=== PATIENT | female | born 1970 | race Caucasian/White ===

== ENCOUNTER → 2020-03-13 | Outpatient (CLI) | payer OTHER ==
--- NOTE | 2020-03-13 11:56 | 2DMMODE ---
[facility] [place] [address] 2 D/M-MODE ECHOCARDIOGRAM Name: TONY ESTEVEZ Room #: REG QUIANA Amaral#: [id number] Admission: 03/13/20 Attend Phys: Travis Guerra MD Discharge: Date of : 72 Report #: [id number] THIS REPORT FOR: cc: Travis Guerra MD, Kent K. MD Park, Jin S. MD ~ APPROVED REPORT Study performed: 03/13/2020 11:10:59 EXAM: Comprehensive 2D, Doppler, and color-flow Echocardiogram Patient Location: Out-Patient Status: routine BSA: 1.61 HR: 103 bpm BP: 114/70 mmHg Rhythm: NSR/TACHY Other Information Study Quality: Adequate/thin body habitus Indications Scleroderma. 2D Dimensions RVDd: 30.86 mm IVSd: 8.04 (7-11mm) LVOT Diam: 19.58 (18-24mm) LVDd: 44.10 mm PWd: 8.14 (7-11mm) LVDs: 23.76 (25-40mm) Aortic Root: 31.30 mm Volumes Left Atrial Volume (Systole) Single Plane 4CH: 19.38 mL Single Plane 2CH: 33.51 mL Aortic Valve AoV Peak Jenaro.: 1.72 m/s AO Peak Gr.: 11.77 mmHg LVOT Max P.46 mmHg LVOT Max V: 1.37 m/s MAYA Vmax: 2.40 cm2 [facility] [address] [place] [address] 2 D/M-MODE ECHOCARDIOGRAM Name: TONY ESTEVEZ Room #: REG [facility]#: [id number] Admission: 03/13/20 Attend Phys: Travis Guerra MD Discharge: Date of : 72 Report #: [id number] Mitral Valve E/A Ratio: 1.1 MV Decel. Time: 116.45 ms MV E Max Jenaro.: 0.95 m/s MV A Jenaro.: 0.87 m/s MV PHT: 33.77 ms IVRT: 57.67 ms Pulmonary Valve PV Peak Jenaro.: 1.04 m/s PV Peak Gr.: 4.35 mmHg Pulmonary Vein P Vein S: 0.91 m/s P Vein D: 0.69 m/s P Vein S/D Ratio: 1.32 Tricuspid Valve TR Peak Jenaro.: 1.84 m/s RAP Estimate: 5.00 mmHg TR Peak Gr.: 13.48 mmHg PA Pressure: 18.00 mmHg Left Ventricle The left ventricle is normal size. There is normal LV segmental wall motion. There is normal left ventricular wall thickness. Left ventricular systolic function is normal. LVEF is 65%. The left ventricular diastolic function is normal. Right Ventricle The right ventricle is normal size. The right ventricular systolic function is normal. Atria The left atrium size is normal. The right atrium size is normal. Aortic Valve The aortic valve is normal in structure. No aortic regurgitation is present. There is no aortic valvular stenosis. Mitral Valve The mitral valve is normal in structure. Trace mitral regurgitation. No evidence of mitral valve stenosis. Tricuspid Valve The tricuspid valve is normal in structure. Trace tricuspid regurgitation. Estimated PAP is 18mmHg. [facility] [address] [place] [address] 2 D/M-MODE ECHOCARDIOGRAM Name: TONY ESTEVEZ Room #: REG [facility]#: [id number] Admission: 03/13/20 Attend Phys: Travis Guerra MD Discharge: Date of : 72 Report #: [id number] Pulmonic Valve Pulmonic valve is not well visualized. <Conclusion> The left ventricle is normal size. There is normal left ventricular wall thickness. Left ventricular systolic function is normal. The right ventricle is normal size. The left atrium size is normal. The aortic valve is normal in structure. Trace mitral regurgitation. Trace tricuspid regurgitation. Estimated PAP is 18mmHg. <ELECTRONICALLY SIGNED> By: Jorge L Nelson MD 03/13/20 1154 [id number] Jorge L Nelson MD /INF
== END ==
LOC: CV 11:00
DX: M34.9 Systemic sclerosis, unspecified (principal)